=== PATIENT | female | born 2000 | race Caucasian/White ===

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

== ENCOUNTER 2021-08-23 10:00 | Emergency (ER) | payer BC, OTHER ==
[~2021-08-23 10:00] MED LIST: COLACE 100MG C100 MG PO; KEFLEX CAP 500500 MG PO
[2021-08-23] MEDS ORDERED: PREDNISONE 20 M20 MG PO (11:16)
[2021-08-23] MEDS ORDERED: CEFDINIR300 MG PO (11:16)
[2021-08-23] MEDS ORDERED: ZYRTEC10 M3 PO (11:16)
== END 2021-08-23 11:30 | disposition home or self-care (01) ==
LOC: ER1 10:00
DX: T78.40XA Allergy, unspecified, initial encounter (principal); Z86.718 Personal history of other venous thrombosis and embolism; Z88.5 Allergy status to narcotic agent; Z88.8 Allergy status to other drugs, medicaments and biological substances; Z90.89 Acquired absence of other organs
CPT/HCPCS: 99282